=== PATIENT | male | born 1945 | race Caucasian/White ===

== ENCOUNTER 2021-03-10 18:42 | Emergency (ER) | payer MEDICARE, OTHER ==
[~2021-03-10] VITALS: Ht 162.6 cm; Wt 59.0 kg
[2021-03-10 18:42] VITALS: BP_SYST 131
--- NOTE | 2021-03-10 19:00 | NUR ---
Patient to ER bed 1 to gown for evaluation. Side rails up.
[2021-03-10] MEDS ORDERED: ACETAMINOPHEN 650 MG SUPP.RECT RC ONE ×2 (19:30→19:38)
[2021-03-10] MEDS ORDERED: NACL 0.9% 1,000 ML IV ONE (19:30)
--- NOTE | 2021-03-10 19:30 | NUR ---
PATIENT AAOX3 AND BENGALI SPEAKING BIB BLS FROM HOME C/O FEVER OF 89 [address]. PER FAMILY HE RECEIEVED HERNIA SURGERY AT [facility]. PER PATIENT ALSO STATES HAVING PAIN TO SURGICAL AREA. VSS. DENIES ANY SOB OR CHEST PAIN. DENIES ANY N/V/D.
--- NOTE | 2021-03-10 19:38 | NUR ---
DR. DENT AT BEDSIDE FOR EVALUATION.
[2021-03-10 19:54] LABS: BASOPHILS # (AUTO) 0.1 K/uL (0.0-0.2); BASOPHILS % (AUTO) 0.5 % (0.0-2.0); HEMOGLOBIN 11.4 g/dL (14.0-18.0); LYMPHOCYTES % (AUTO) 10.2 % (20.5-51.5); MEAN CORPUSCULAR HEMOGLOBIN 30 pg (27-31); MEAN CORPUSCULAR HGB CONC 34 % (32-36); MEAN CORPUSCULAR VOLUME 88 fL (79.0-98.0); MONOCYTES % (AUTO) 10.4 % (1.7-9.3); NEUTROPHILS # (AUTO) 7.8 K/uL (1.8-7.7); NEUTROPHILS % (AUTO) 78.9 % (40.0-70.0); PLATELET COUNT (AUTO) 94 K/uL (130-430); RED BLOOD CELL COUNT(AUTO) 3.86 MIL/uL (4.2-6.2); RED CELL DISTRIBUTION WIDTH 13.1 % (9.0-15.0); WHITE BLOOD COUNT (AUTO) 9.9 K/uL (4.8-10.8)
[2021-03-10 20:10] LABS: ANION GAP 11 (5-15); CALCIUM 8.3 mg/dL (8.4-11.0); CHLORIDE 100 mmol/L (98-107); CREATININE 1.42 mg/dL (0.55-1.30); GLUCOSE 264 mg/dL (70-99); POTASSIUM 3.2 mmol/L (3.5-5.1); SODIUM SERUM 134 mmol/L (136-145); UREA NITROGEN, BLOOD 30 mg/dL (8-21)
[2021-03-10 20:14] LABS: INR 1.1 (0.80-1.20); PROTHROMBIN TIME 11.4 SECS (9.5-12.5)
[2021-03-10 20:16] LABS: ALANINE AMINOTRANSFERASE 83 U/L (12-78); ALBUMIN 3.5 g/dL (3.4-4.8); ASPARTATE AMINOTRANSFERASE 188 U/L (10-37); TOTAL BILIRUBIN 1.1 mg/dL (0.0-1.0)
--- NOTE | 2021-03-10 20:55 | NUR ---
PATIENT TAKEN TO CT SCAN VIA GURNEY BY RADIOLOGY STAFF.
--- NOTE | 2021-03-10 21:10 | NUR ---
COVID SWAB AND URINE COLLECTED AND SENT TO LAB FOR ANALYSIS.
[2021-03-10 21:29] LABS: BILIRUBIN,URINE NEGATIVE (NEGATIVE); BLOOD, URINE 3+ (NEGATIVE); GLUCOSE,URINE 2+ (NEGATIVE); KETONES,URINE 1+ (NEGATIVE); LEUKOCYTE ESTERASE ,URINE NEGATIVE (NEGATIVE); NITRITE, URINE NEGATIVE (NEGATIVE); PROTEIN URINE 2+ (NEGATIVE); UROBILINOGEN,URINE 0.2 (0.2-1.0)
[2021-03-10 22:02] LABS: CLARITY/URINE SLIGHTLY HAZY (CLEAR); COLOR,URINE AMBER (YELLOW)
[2021-03-10] MEDS ORDERED: CEFEPIME 2 GM in D5W 100 ML IV ONE (22:15)
[2021-03-10] MEDS ORDERED: VANCOMYCIN HCL 1,000 MG in NS 250 ML IV ONE (22:15)
[2021-03-10] MEDS ORDERED: ASPIRIN 325 MG TABLET PO ONE (22:45)
[2021-03-10] MEDS ORDERED: VANCOMYCIN HCL 1000 MG/VIAL IV ONE (23:25)
[2021-03-10] MEDS ORDERED: CEFEPIME 1 GM/VIAL (MAXIPIME) ONE (23:25)
[2021-03-11 00:07] LABS: BACTERIA,URINE None Seen /HPF (None Seen); MUCUS,URINE 2+ /LPF (None Seen); WBC,URINE 0-3 /HPF (0-3)
[2021-03-11 01:38] VITALS: BP_SYST 135
--- NOTE | 2021-03-11 01:38 | NUR ---
Patient to be transferred to [facility] ER. Is being transferred due to higher level of care. Receiving facility has accepting physician and available space. ER physician has signed transfer form. Patient or responsible libertarian has agreed to transfer and signed form. Patient belongings inventoried and will be sent with patient. Copy of nursing notes, lab reports, EKG, Physicians Orders and X-rays to be sent with patient. Report called to KIM NOLAN at receiving facility. Receiving physician is DR. BLAKE. ambulance service has been called for transfer. ETA is [id number].
== END 2021-03-11 01:27 | disposition short-term general hospital (02) ==
LOC: SED 18:42
DX: G93.40 Encephalopathy, unspecified (principal); I21.4 Non-ST elevation (NSTEMI) myocardial infarction; N17.9 Acute kidney failure, unspecified; R65.10 Systemic inflammatory response syndrome (SIRS) of non-infectious origin without acute organ dysfunction; E87.6 Hypokalemia; E11.9 Type 2 diabetes mellitus without complications; Z20.822 Contact with and (suspected) exposure to COVID-19
CPT/HCPCS: 36415; 70450; 71045; 74176; 76376; 80053; 81000; 83605; 84484; 85025; 85610; 85730; 87040; 87086; 87426; 93005; 96361; 96365; 96368; 99291; J0692; J3370; J7030